=== PATIENT | female | born 1945 | race Caucasian/White ===

== ENCOUNTER 2017-09-21 13:17 | Inpatient (IN) | payer OTHER, MEDICARE ==
[2017-09-21] MEDS ORDERED: Iohexol 300 MG/ML 30 ML Bottle PO ONE (13:56)
[2017-09-21] MEDS ORDERED: Acetaminophen 650 MG Supp RECTAL PRN (13:56)
[2017-09-21] MEDS ORDERED: Ondansetron 4 MG Tab.DIS PO PRN (13:58)
[2017-09-21] MEDS: Dextrose 5%-Lactated Ringers 1,000 ML IV SCH ×2 (14:25→23:10)
[2017-09-21] MEDS ORDERED: Iopamidol 612 MG/ML 100 ML Bottle IV PRN (14:36)
[2017-09-21] MEDS ORDERED: Pantoprazole 40 MG Vial IV ONE (15:00)
[2017-09-21] MEDS: Sodium Chloride 0.9% 10 ML Syringe FLUSH SCH (15:29)
--- NOTE | 2017-09-21 16:36 | PCM.HP ---
H&P History of Present Illness - General Date of Service: 09/21/17 Admit Problem/Dx: Admission Diagnosis/Problem Admission Diagnosis/Problem Partial bowel obstruction Source of Information: Patient History Limitations: Reports: No Limitations - History of Present Illness Onset of Symptoms: Reports: Gradual Abdomen Pain Score (Numeric/FACES): 4 - Related Data Allergies/Adverse Reactions: Allergies Allergy/AdvReac Type Severity Reaction Status Date / Time azithromycin Allergy Rash Verified 11/04/15 10:11 bacitracin Allergy Rash Verified 03/29/16 09:08 [From Neosporin ([id number])] bacitracin zinc Allergy Rash Verified 03/29/16 09:08 [From Neosporin ([id number])] ciprofloxacin Allergy Rash Verified 03/29/16 09:08 neomycin sulfate Allergy Rash Verified 03/29/16 09:08 [From Neosporin ([id number])] oxybutynin Allergy Rash Verified 03/29/16 09:08 polymyxin B Allergy Rash Verified 03/29/16 09:08 [From Neosporin ([id number])] codeine AdvReac Vomiting Verified 03/29/16 09:08 hydromorphone AdvReac Vomiting Verified 03/29/16 09:08 prochlorperazine AdvReac Vomiting Verified 03/29/16 09:08 [From Compazine] prochlorperazine edisylate AdvReac Vomiting Verified 03/29/16 09:08 [From Compazine] prochlorperazine maleate AdvReac Vomiting Verified 03/29/16 09:08 [From Compazine] zolpidem tartrate AdvReac Dizziness Verified 03/29/16 09:08 [From Ambien] popcorn AdvReac Fever Uncoded 03/29/16 09:08 Home Medications: Home Meds Calcium Citrate 950 mg PO DAILY 08/08/14 [History] Cholecalciferol (Vitamin D3) [Vitamin D3] 400 unit PO BID 08/08/14 [History] Cyanocobalamin (Vitamin B12) [Vitamin B12] 2,000 mcg SL BID 08/08/14 [History] Fish Oil/Borage/Flax/Om3,6,9#1 [Be[place]umont 3-6-9 Complex Softgel] 1,000 mg PO DAILY 08/08/14 [History] Levothyroxine Sodium [Synthroid] 125 mcg PO DAILY 08/08/14 [History] Multivitamin [Multi-Vitamin Daily] 1 tab PO BID 08/08/14 [History] Omeprazole 40 mg PO BID 08/08/14 [History] Vitamin B Complex 100 NO.2 [Balanced B-100] 1 tab PO DAILY 08/08/14 [History] Mv, Min #36/Iron,Carbonyl/FA [Geritol Complete Tablet] 1 tab PO .WEEKLY [History] Mv-Mn/FA/Vit K/Lycop/Lut/Zeaxa [Ocuvite Eye + Multi Tablet] 1 tab PO Q7D [History] Ubidecarenone [Coenzyme Q-10] 200 mg PO BID 11/03/15 [History] Lipase/Protease/Amylase [Zenpep DR 5,000 Unit] 10,000 units PO TID 11/04/15 [ History] Trimethobenzamide HCl 300 mg PO BID 11/04/15 [History] Past Medical History HEENT History: Reports: Impaired Vision Other HEENT History: wears glasses Cardiovascular History: Reports: Arrhythmia Gastrointestinal History: Reports: Bowel Obstruction, Chronic Constipation, Colon Polyp, Gastritis, GERD, Hiatal Hernia, Other (See Below) Other Gastrointestinal History: pancreatic non-absorbtion disorder Genitourinary History: Reports: Chronic Renal Insuffiency, Retention, Urinary, Urinary Incontinence, UTI, 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: Reports: Fibroids, , Other (See Below) Other OB/BYN History: double independent uteruses Musculoskeletal History: Reports: Arthritis, Other (See Below) Other Musculoskeletal History: double scoliosis Neurological History: Reports: Alzheimers Disease, Headaches, Chronic, Head Trauma, Migraines, Other (See Below) Other Neuro History: TBI 2013 Psychiatric History: Reports: Depression Endocrine/Metabolic History: Reports: Hypothyroidism, Vitamin D Deficiency Hematologic History: Reports: Iron Deficiency Oncologic (Cancer) History: Reports: Basal Cell Carcinoma, Renal Dermatologic History: Reports: Eczema - Infectious Disease History Infectious Disease History: Reports: Chicken Pox, Measles, Mumps - Past Surgical History HEENT Surgical History: Reports: Adenoidectomy, Naso-Sinus Surgery, Tonsillectomy GI Surgical History: Reports: Appendectomy, Bariatric Procedure, Cholecystectomy , Colonoscopy, EGD, Hernia Repair/Other, Liz Fundoplication, Polypectomy, Other (See Below) Female Surgical History: Reports: Hysterectomy, Salpingo-Oophorectomy, Other (See Below) Musculoskeletal Surgical History: Reports: Carpal Tunnel Oncologic Surgical History: Reports: Other (See Below) Dermatological Surgical History: Reports: Skin Biopsy Social & Family History - Family History Family Medical History: Noncontributory - Tobacco Use Smoking Status *Q: Never Smoker Second Hand Smoke Exposure: No - Caffeine Use Caffeine Use: Reports: None - Recreational Drug Use Recreational Drug Use: No H&P Review of Systems - Review of Systems: Review Of Systems: See Below Free Text/Narrative: Kriss states that she is having abdominal pain for 7 days from her umbilicus down to her pelvic area. Quantity: 4/10 all the time, 6/10 if she moves and a 10/10 after eating Quality: "severe stomach ache" constant intense aching Course: gradually worsening Aggravating factors: eating, movement or walking around Alleviating Factors: laying down and not eating Associated S/S: nausea, vomiting, pain with bowel movements, diarrhea - color of stools are whitish/yellow General: Reports: No Symptoms HEENT: Reports: No Symptoms Pulmonary: Reports: No Symptoms Cardiovascular: Reports: No Symptoms Gastrointestinal: Reports: No Symptoms Genitourinary: Reports: No Symptoms Musculoskeletal: Reports: No Symptoms Skin: Reports: No Symptoms Psychiatric: Reports: No Symptoms Neurological: Reports: Weakness Hematologic/Lymphatic: Reports: No Symptoms Immunologic: Reports: No Symptoms Exam - Exam Exam: See Below - Vital Signs Vital Signs: Last Vital Signs Temp 96.2 F 09/21/17 14:44 Pulse 66 09/21/17 14:44 Resp 16 09/21/17 14:44 BP 122/67 09/21/17 14:44 Pulse Ox 96 09/21/17 14:44 Weight: 148 lb - Exam General: Alert, Oriented, Moderate Distress HEENT: PERRLA Neck: Supple, Trachea Midline Lungs: Clear to Auscultation, Normal Respiratory Effort Cardiovascular: Regular Rate, Regular Rhythm GI/Abdominal Exam: Distended, Tender, Other (pain in the periumbilical area radiates to lower abdominal area. Distended.) (Female) Exam: Deferred Rectal (Female) Exam: Deferred Back Exam: Normal Inspection, Full Range of Motion Extremities: Normal Inspection, Normal Range of Motion Skin: Warm, Dry, Intact Neurological: Cranial Nerves Intact, Reflexes Equal Bilateral Neuro Extensive - Mental Status: Alert, Oriented x3, Normal Mood/Affect Neuro Extensive - Motor, Sensory, Reflexes: CN II-XII Intact, Normal Gait, Normal Reflexes Psychiatric: Alert, Normal Affect, Normal Mood - Patient Data Lab Results Last 24 hrs: Laboratory Results - last 24 hr 09/21/17 09/21/17 09/21/17 Range/Units 13:45 13:45 13:45 WBC 4.3 L (4.5-11.0) K/uL RBC 4.17 (3.30-5.50) M/uL Hgb 12.5 (12.0-15.0) g/dL Hct 39.1 (36.0-48.0) % MCV 94 (80-98) fL MCH 30 (27-31) pg MCHC 32 (32-36) % Plt Count 209 (150-400) K/uL Sodium 143 (140-148) mmol/L Potassium 3.7 (3.6-5.2) mmol/L Chloride 108 (100-108) mmol/L Carbon Dioxide 25 (21-32) mmol/L Anion Gap 9.9 (5.0-14.0) mmol/L BUN 13 (7-18) mg/dL Creatinine 0.6 (0.6-1.0) mg/dL Est Cr Clr Drug Dosing TNP Estimated GFR (MDRD) > 60 (>60) Glucose 95 (74-106) mg/dL Calcium 8.6 (8.5-10.1) mg/dL Phosphorus (2.5-4.9) mg/dL Magnesium 2.5 H (1.8-2.4) mg/dL Ferritin 38 (8-388) ng/ml Total Bilirubin 0.6 (0.2-1.0) mg/dL AST 38 H (15-37) U/L ALT 49 (12-78) U/L Alkaline Phosphatase 106 (46-116) U/L Total Protein 6.4 (6.4-8.2) g/dL Albumin 3.9 (3.4-5.0) g/dL Globulin 2.5 (2.3-3.5) g/dL Albumin/Globulin Ratio 1.6 (1.2-2.2) Amylase (25-115) U/L Lipase (73-393) U/L Vitamin B12 2512 H (193-986) pg/ml Vitamin D 25-Hydroxy (30-100) ng/mL Folate > 20.0 (8.6-58.9) ng/ml 09/21/17 09/21/17 Range/Units 13:45 13:45 WBC (4.5-11.0) K/uL RBC (3.30-5.50) M/uL Hgb (12.0-15.0) g/dL Hct (36.0-48.0) % MCV (80-98) fL MCH (27-31) pg MCHC (32-36) % Plt Count (150-400) K/uL Sodium (140-148) mmol/L Potassium (3.6-5.2) mmol/L Chloride (100-108) mmol/L Carbon Dioxide (21-32) mmol/L Anion Gap (5.0-14.0) mmol/L BUN (7-18) mg/dL Creatinine (0.6-1.0) mg/dL Est Cr Clr Drug Dosing Estimated GFR (MDRD) (>60) Glucose (74-106) mg/dL Calcium (8.5-10.1) mg/dL Phosphorus 3.5 (2.5-4.9) mg/dL Magnesium (1.8-2.4) mg/dL Ferritin (8-388) ng/ml Total Bilirubin (0.2-1.0) mg/dL AST (15-37) U/L ALT (12-78) U/L Alkaline Phosphatase (46-116) U/L Total Protein (6.4-8.2) g/dL Albumin (3.4-5.0) g/dL Globulin (2.3-3.5) g/dL Albumin/Globulin Ratio (1.2-2.2) Amylase 51 (25-115) U/L Lipase 91 (73-393) U/L Vitamin B12 (193-986) pg/ml Vitamin D 25-Hydroxy 46.4 (30-100) ng/mL Folate (8.6-58.9) ng/ml Result Diagrams: 09/21/17 13:45 09/21/17 13:45 - Problem List (1) Partial small bowel obstruction SNOMED Code(s): 331164226 ICD Code: K56.600 - PARTIAL INTESTINAL OBSTRUCTION, UNSPECIFIED TO CAUSE Status: Acute Current Visit: Yes Problem List Initiated/Reviewed/Updated: Yes Orders Last 24hrs: Active Orders 24 hr Category Date Time Status Admission Status [Patient Status] [ADT] Routine ADT 09/21/17 13:00 Active Intake and Output [RC] Q1HWA Care 09/21/17 13:51 Active Up ad Latricia [RC] ASDIRECTED Care 09/21/17 13:41 Active Vital Signs [RC] Q6H Care 09/21/17 13:41 Active Abdomen Pelvis w Cont [CT] Urgent Exams 09/21/17 13:52 Taken VITAMIN B1 (THIAMINE), BLOOD Routine Lab 09/22/17 04:00 Ordered Acetaminophen [Tylenol] Med 09/21/17 13:56 Active 650 mg PO Q4H PRN Acetaminophen [Tylenol] Med 09/21/17 13:56 Active 650 mg RECTAL Q4H PRN Dextrose 5%-Lactated Ringers 1,000 ml Med 09/21/17 14:00 Active IV ASDIRECTED Iopamidol [Isovue-300 (61%)] Med 09/21/17 14:36 Active 100 ml IV . DIRECTED PRN Ondansetron [Zofran ODT] Med 09/21/17 13:58 Active 4 mg PO Q4H PRN Sodium Chloride 0.9% [Normal Saline] 70 ml Med 09/21/17 14:45 Active IV ASDIRECTED Sodium Chloride 0.9% [Saline Flush] Med 09/21/17 14:45 Active 10 ml FLUSH ONETIME SCD [Sequential Compression Device] [OM.PC] Routine Oth 09/21/17 13:51 Ordered Code Status [Resuscitation Status] Routine Resus Stat 09/21/17 13:41 Ordered Medication Orders Acetaminophen (Tylenol) 650 mg PO Q4H PRN PRN Reason: FEVER/PAIN Acetaminophen (Tylenol) 650 mg RECTAL Q4H PRN PRN Reason: FEVER/PAIN Dextrose/Lactated Ringer's (Dextrose 5%-Lactated Ringers) 1,000 mls @ 150 mls/ hr IV ASDIRECTED ENMANUEL Last Admin: 09/21/17 14:25 Dose: 150 mls/hr Sodium Chloride (Normal Saline) 70 mls @ 3 mls/sec IV ASDIRECTED ENMANUEL Stop: 09/21/17 23:00 Last Admin: 09/21/17 15:30 Dose: 3 mls/sec Iopamidol (Isovue-300 (61%)) 100 ml IV . DIRECTED PRN PRN Reason: RADIOLOGY EXAM Stop: 09/22/17 14:37 Last Admin: 09/21/17 15:30 Dose: 100 ml Ondansetron HCl (Zofran Odt) 4 mg PO Q4H PRN PRN Reason: N/V Sodium Chloride (Saline Flush) 10 ml FLUSH ONETIME ENMANUEL Stop: 09/21/17 23:00 Last Admin: 09/21/17 15:29 Dose: 10 ml Assessment/Plan Comment:: Admit to Inpatient See Orders in EMR Plan of hospitalization 2 nights and 3 days. Unless surgery is indicated Ekta Benjamin
[2017-09-21] MEDS ORDERED: hydrOXYzine HCl 100 MG/2 ML SDV IM PRN (17:14)
[2017-09-21] MEDS ORDERED: Polyethylene Glycol 3350 Powder 17 GM Packet PO ONE (17:46)
[2017-09-21] MEDS ORDERED: MVI, Adult with Vitamin K 10 ML, Thiamine 100 MG, Magnesium Sulfate 2 GM, Folic Acid 1 ... IV ONE ×5 (18:00)
[2017-09-21] MEDS ORDERED: Polyethylene Glycol 3350 Powder 238 GM Bot ONE (18:16)
[2017-09-21] MEDS: Acetaminophen 325 MG Tab PO PRN (22:52)
[2017-09-22] MEDS: Dextrose 5%-Lactated Ringers 1,000 ML IV SCH ×3 (05:32→23:49)
[2017-09-22] MEDS: Acetaminophen 325 MG Tab PO PRN (07:52)
[2017-09-22] MEDS ORDERED: Lidocaine 2% 100 MG/5 ML Syringe IVPUSH ONE (09:00)
[2017-09-22] MEDS ORDERED: Ropivacaine 33 ML, Dexamethasone 8 MG, EPINEPHrine 0.4 MG, Sodium Chloride 0.9% 44.6 ML NERVRT SCH ×4 (09:00)
[2017-09-22] MEDS ORDERED: Non-Formulary Medication 1 Each (Levothyroxine Sodium [Synthroid] 125 MCG) PO SCH (09:00)
[2017-09-22] MEDS ORDERED: Mirabegron 25 MG Tab Extended Release PO SCH (09:00)
[2017-09-22] MEDS ORDERED: Ketamine 500 MG/5 ML MDV IV SCH (09:00)
[2017-09-22] MEDS ORDERED: Meropenem 500 MG SDV ONE (09:19)
--- NOTE | 2017-09-22 09:26 | PN ---
DATE OF SERVICE: 09/22/2017 SUBJECTIVE: Kriss continues to have pain on a pain scale of 1 to 10, an 8/10. She also was reporting headache. She had two BMs last night, which made no difference in her pain. REVIEW OF SYSTEMS: Remainder of review of systems negative for any pertinent positives and negatives. OBJECTIVE: GENERAL: Kriss Greene is a 72-year-old female, remains to have abdominal distention. VITAL SIGNS: TPR is 96.4, 87, 18, and blood pressure 94/50. HEENT: Negative. NECK: Supple. HEART: Regular rate and rhythm. LUNGS: Clear. ABDOMEN: Distended and tender in all 4 quadrants. EXTREMITIES: Without peripheral edema. ASSESSMENT: Partial small bowel obstruction. PLAN: 1. Schedule, have consent signed for exploratory laparotomy for release of partial small bowel obstruction and possible lysis of adhesion and possible bowel resection. Case to follow today, , 09/22/2017; general anesthesia; TAP block; n.p.o.; Fred Willams MD. Lidocaine and ketamine ordered through Pharmacy. 2. Cefoxitin 2 grams IV on-call to OR; with an increase in headache, may have Tylenol with sip of water 1000 mg one time. Ekta Abernathy PA-C /[id number]
[2017-09-22] MEDS ORDERED: cefOXitin 2 GM in Sodium Chloride 0.9% 50 ML IV ONE (10:00)
[2017-09-22] MEDS ORDERED: Propofol 200 MG/20 ML SDV ONE (10:00)
[2017-09-22] MEDS ORDERED: Succinylcholine 200 MG/10 ML MDV ONE (10:00)
[2017-09-22] MEDS ORDERED: Lactated Ringers 2,000 ML ONE (10:36)
[2017-09-22] MEDS: Levothyroxine 100 MCG, Levothyroxine 25 MCG PO SCH ×2 (14:15)
[2017-09-22] MEDS: Lidocaine 0.4%/D5W 2 GM/500 ML BAG IV SCH (14:16)
[2017-09-22] MEDS ORDERED: Ondansetron 4 MG/2 ML SDV IVPUSH PRN (16:00)
[2017-09-22] MEDS ORDERED: diphenhydrAMINE 50 MG/ML SDV IVPUSH PRN (16:00)
[2017-09-22] MEDS ORDERED: Labetalol 20 MG/4 ML Syringe IVPUSH PRN (16:00)
[2017-09-22] MEDS ORDERED: hydrOXYzine HCl 100 MG/2 ML SDV IM PRN (16:00)
[2017-09-22] MEDS ORDERED: Metoclopramide 10 MG/2 ML SDV IVPUSH PRN (16:00)
[2017-09-22] MEDS: Acetaminophen Soln 650 MG/20.3 ML UD Cup PO SCH ×2 (16:38→21:35)
[2017-09-22] MEDS: Sodium Chloride 0.9% 10 ML Syringe FLUSH SCH (16:40)
[2017-09-22] MEDS: Pantoprazole 40 MG Vial IVPUSH SCH (16:40)
[2017-09-22] MEDS ORDERED: Scopolamine 1.5 MG Transdermal Patch TOP SCH (17:00)
[2017-09-22] MEDS: cefOXitin 2 GM in Sodium Chloride 0.9% 50 ML IV SCH ×2 (17:03→21:23)
[2017-09-22] MEDS: MVI, Adult with Vitamin K 10 ML, Thiamine 100 MG, Chromium/Copper/Mang/Selen/Zn 1 ML in... IV SCH ×4 (17:39)
[2017-09-22] MEDS: Gabapentin 250 MG/5 ML Solution ML 470 ML Bottle PO SCH (20:23)
[2017-09-22] MEDS: Heparin Sodium 5,000 Units/ML Vial SUBCUT SCH (20:24)
[2017-09-22] MEDS ORDERED: TRIMETHOBENZAMIDE PO SCH (21:00)
[2017-09-23] MEDS ORDERED: Iohexol 647 MG/ML 50 ML SDV PO STA (03:27)
[2017-09-23] MEDS: Acetaminophen Soln 650 MG/20.3 ML UD Cup PO SCH ×4 (04:24→21:18)
[2017-09-23] MEDS: cefOXitin 2 GM in Sodium Chloride 0.9% 50 ML IV SCH ×2 (04:25→09:19)
[2017-09-23] MEDS: Dextrose 5%-Lactated Ringers 1,000 ML IV SCH ×2 (06:05→12:54)
[2017-09-23] MEDS: Celecoxib 200 MG Cap PO SCH (08:13)
[2017-09-23] MEDS: Heparin Sodium 5,000 Units/ML Vial SUBCUT SCH ×2 (08:13→21:19)
[2017-09-23] MEDS: Levothyroxine 100 MCG, Levothyroxine 25 MCG PO SCH ×2 (08:13)
[2017-09-23] MEDS: SCOPOLAMINE PATCH CHECK TOP SCH (08:19)
--- NOTE | 2017-09-23 08:44 | CR ---
UGI wo KUB HISTORY: eval R -Y GBP COMPARISON: CT 09/21/2017. FINDINGS: After administration of oral contrast, upright views were obtained, including delayed image s up to 2 hours. Post operative changes gastric bypass. Surgical drains in place. No evidence for bela k. On the delayed images, contrast material is seen in the distal esophagus and a dilated loop of sma ll bowel mid abdomen. If symptoms persist consider follow-up exam to exclude partially obstructing pr ocess at the GE junction and mid small bowel.
[2017-09-23] MEDS: Gabapentin 250 MG/5 ML Solution ML 470 ML Bottle PO SCH ×3 (09:07→21:18)
[2017-09-23] MEDS: Lidocaine 0.4%/D5W 2 GM/500 ML BAG IV SCH (09:08)
[2017-09-23] MEDS: Mirabegron 25 MG Tab Extended Release PO SCH (09:16)
--- NOTE | 2017-09-23 12:04 | PN ---
DATE OF SERVICE: 09/23/2017 SUBJECTIVE: Kriss is postop day 1. Her lidocaine drip will stop at 2 o'clock. Her pain has been controlled. She has been up ambulating. REVIEW OF SYSTEMS: Remainder of review of systems is negative for any pertinent positives and negatives. OBJECTIVE: GENERAL: Kriss Greene is a 72-year-old female. She is alert and orientated. VITAL SIGNS: TPR is 98.8, 64, 16, blood pressure 104/54. HEENT: Negative. NECK: Supple. HEART: Regular rate and rhythm. LUNGS: Clear. ABDOMEN: Dressings are dry and intact. Abdominal binder is on. EXTREMITIES: Without peripheral edema. ASSESSMENT: Exploratory laparotomy with revision of the jejunostomy and placement of Vicryl mesh. Date 09/22/2017. PLAN: 1. Step-3 gastric bypass diet. 2. Decrease IV to 100 mL per hour. 3. Good pulmonary toilet. 4. We will evaluate p.r.n. or in the a.m. Ekta Abernathy PA-C /[id number]
[2017-09-23] MEDS: Pantoprazole 40 MG Vial IVPUSH SCH (15:37)
[2017-09-23] MEDS: MVI, Adult with Vitamin K 10 ML, Thiamine 100 MG, Chromium/Copper/Mang/Selen/Zn 1 ML in... IV SCH ×4 (17:41)
[2017-09-24] MEDS: Acetaminophen Soln 650 MG/20.3 ML UD Cup PO SCH ×4 (03:03→21:01)
[2017-09-24] MEDS: Dextrose 5%-Lactated Ringers 1,000 ML IV SCH (03:04)
[2017-09-24] MEDS: Mirabegron 25 MG Tab Extended Release PO SCH (08:36)
[2017-09-24] MEDS: Levothyroxine 100 MCG, Levothyroxine 25 MCG PO SCH ×2 (08:37)
[2017-09-24] MEDS: Celecoxib 200 MG Cap PO SCH (08:37)
[2017-09-24] MEDS: Heparin Sodium 5,000 Units/ML Vial SUBCUT SCH ×2 (08:37→21:00)
[2017-09-24] MEDS: Gabapentin 250 MG/5 ML Solution ML 470 ML Bottle PO SCH ×3 (08:49→21:12)
[2017-09-24] MEDS ORDERED: Cyanocobalamin (Vitamin B12) 1,000 MCG/ML SDV IM ONE (09:00)
[2017-09-24] MEDS ORDERED: Sodium Chloride 0.9% 10 ML Syringe IV PRN (10:21)
[2017-09-24] MEDS: SCOPOLAMINE PATCH CHECK TOP SCH (10:27)
[2017-09-24] MEDS: Bisacodyl 5 MG Tab PO SCH ×2 (11:44→21:01)
[2017-09-24] MEDS ORDERED: Pantoprazole 40 MG Tab.CR PO SCH (16:00)
[2017-09-25] MEDS: Acetaminophen Soln 650 MG/20.3 ML UD Cup PO SCH ×2 (04:33→09:17)
[2017-09-25 07:33] VITALS: BP 114/70
[2017-09-25] MEDS: Heparin Sodium 5,000 Units/ML Vial SUBCUT SCH (08:16)
[2017-09-25] MEDS: Bisacodyl 5 MG Tab PO SCH (08:16)
[2017-09-25] MEDS: Levothyroxine 100 MCG, Levothyroxine 25 MCG PO SCH ×2 (08:17)
[2017-09-25] MEDS: Celecoxib 200 MG Cap PO SCH (08:17)
[2017-09-25] MEDS: SCOPOLAMINE PATCH CHECK TOP SCH (08:17)
[2017-09-25] MEDS: Mirabegron 25 MG Tab Extended Release PO SCH (08:17)
[2017-09-25] MEDS: Gabapentin 250 MG/5 ML Solution ML 470 ML Bottle PO SCH (08:24)
--- NOTE | 2017-09-25 15:57 | OR ---
DATE OF PROCEDURE: 09/22/2017 PREOPERATIVE DIAGNOSIS: Partial small bowel obstruction at jejunojejunostomy. POSTOPERATIVE DIAGNOSES: 1. Partial small bowel obstruction at jejunojejunostomy with a fixed stricture at the junction of the Olga Lidia limb and the point of entering the jejunojejunostomy. 2. Extensive intraabdominal adhesions. OPERATIVE PROCEDURES: Exploratory laparotomy with lysis of extensive adhesions and: 1. Revision of jejunojejunostomy component of Olga Lidia-en-Y gastric bypass (34116). 2. Placement of Vicryl mesh to displace pelvic and abdominal montes from underlying viscera to limit recurrent adhesion formation (33248). ANESTHESIA: General. [employer] CLERK: Ekta Abernathy PA-C. INDICATION FOR PROCEDURE: This is a 72-year-old presenting with a picture of a partial small bowel obstruction. The bowel was fairly distended on CT scan, and given this, we will proceed with an open approach to prevent risking injury to underlying bowel and significant GI tract spill should that occur. The plan is to proceed with an exploratory laparotomy and procedures as indicated to relieve the bowel obstruction. This may include lysis of adhesions and/or bowel resection. Potential risks of the procedure including bleeding, infection, leaks from various GI tract closures, problems with recurrent bowel obstruction over time were all reviewed, and the patient wishes to proceed. DETAILS OF PROCEDURE: The patient was taken to the operating room and placed in a supine position. After general endotracheal anesthesia was induced, using ultrasound guidance, bilateral subcostal transverse abdominis plane blocks were placed using standard solution. At this point, a Thomas catheter was placed, which was subsequently removed and an upper midline incision made from the umbilicus roughly handsbreadth up toward the xiphoid. This was carried down through the full thickness of the abdominal wall. Upon entering the peritoneal cavity, there were fairly extensive adhesions present between the omentum, small bowel, and the abdominal and pelvic wall. These were taken down. At that point, the small bowel was run. The point of obstruction was obviously at the point where the Olga Lidia limb entered the jejunojejunostomy with the bowel proximal, that being fairly distended. As the anastomosis was examined, it appeared to have a fixed stricture at the point where the Olga Lidia limb joined the jejunojejunostomy, which would require revision of that component of the Olga Lidia-en-Y gastric bypass. Given this, then the small bowel was divided at the junction of the Olga Lidia limb and entering the jejunojejunostomy with a STEFANY stapler. Small bowel of the Olga Lidia limb was then resected to facilitate adequate mobility for subsequent revisional anastomosis. The mesentery underlying this segment was divided with mesenteric loads and the roughly 6 cm of small bowel was then excised by means of a STEFANY talbert load. The patient at this point has had fairly good weight loss, and given this, the reconstruction of the jejunojejunostomy was made only roughly 30 cm distal to the previous anastomosis which gave her a Olga Lidia limb of around 80 cm and common limb of around 360 cm. At that level, side-to- side enteroenterostomy was accomplished with internal firing of the STEFANY stapler. The common opening was then closed transversely with same stapler. Angles were then anastomosed and reinforced with some 3-0 Vicryl stitch and the mesenteric defect closed with a 2-0 silk stitch. At that point, no further problems noted. The abdomen was irrigated with antibiotic-containing saline solution to limit recurrent adhesion formation between the pelvic and abdominal wall and underlying viscera. A 12-inch area of Vicryl mesh was placed down into the depths of the pelvis along the pelvic sidewalls and up against the abdominal wall. The midline fascia was then approximated with a #2 Vicryl stitch and the subcutaneous tissue approximated with two layers of 3-0 Vicryl stitch and the skin with eileen. Dressing was applied. The patient was taken to the recovery room in satisfactory condition. Physician senior office assistant, Ekta Abernathy, played an essential role in assisting in this case, helping to position the patient, retract structures as needed, as well as suturing and cutting sutures when indicated. Her presence improved patient's safety and decreased the operative time. Fred Willams MD /[id number]
--- NOTE | 2017-09-25 16:15 | DISCH ---
FINAL DIAGNOSES: 1. Partial small-bowel obstruction at jejunojejunostomy. 2. Extensive intraabdominal adhesions. 3. Bariatric surgery status. 4. Pancreatic malabsorption disorder. 5. Treated hypothyroidism. 6. History of traumatic brain injury. 7. History of iron deficiency. OPERATIVE PROCEDURE: This was done on 09/22, exploratory laparotomy with lysis of extensive adhesions: 1. Revision of jejunojejunostomy component of the Olga Lidia-en-Y gastric bypass. 2. Placement of Vicryl mesh to limit recurrent adhesion formation. SUMMARY: This is a 72-year-old presenting with symptoms suggestive of partial small-bowel obstruction. After evaluation, the patient was admitted and underwent exploratory laparotomy on 09/22. She was found to have a stricture at the point where the Olga Lidia limb entered the jejunojejunostomy, and the jejunojejunostomy was then revised. This was not based significantly more distally than previous increased degree of malabsorption. Some Vicryl mesh was placed at the end of the procedure to limit recurrent adhesion formation between pelvic and abdominal wall and underlying viscera. Postoperatively, she has done well with no significant postoperative problems. She is tolerating a step-4 diet. Upper GI x-ray on postop day #1 looked good. We will send her home with usual medications plus Tylenol 650 p.o. q.i.d. p.r.n. and then Celebrex 200 mg daily x14 days and gabapentin 300 mg t.i.d. x14 days. She did not move her bowels as of yet, but is passing gas. We will sent her with 2 doses of milk of magnesia to help facilitate bowel activity when she gets home. FOLLOWUP: Will be with Ekta Abernathy PA-C, at [facility] on 10/03/2017, and she will be sent home on a step-4 diet.
--- NOTE | 2017-09-26 13:26 | PN ---
DATE OF SERVICE: 09/24/2017 The patient has afebrile with stable vital signs. Oral intake is fairly good. We will walk through a step-4 diet today and saline lock the IV as oral pain medications are working satisfactorily. Give her some bowel stimulation today. She may be ready for discharge home tomorrow. Fred Willams MD /[id number]
== END 2017-09-25 10:36 | disposition home or self-care (01) | DRG 336 ==
LOC: JP.2SS 13:17 → UNDODISIN 09-25 10:36
PROVIDERS: ADMIT Surgery; ATTEND Surgery
PROC: 0DBA0ZX Excision of Jejunum, Open Approach, Diagnostic (ICD-10-PCS; principal; 2017-09-22)
PROC: 0DNU0ZZ Release Omentum, Open Approach (ICD-10-PCS; 2017-09-22)
PROC: 0DN80ZZ Release Small Intestine, Open Approach (ICD-10-PCS; 2017-09-22)
PROC: 0DNW0ZZ Release Peritoneum, Open Approach (ICD-10-PCS; 2017-09-22)
PROC: 3E0T3BZ Introduction of Anesthetic Agent into Peripheral Nerves and Plexi, Percutaneous Approach (ICD-10-PCS; 2017-09-22)
PROC: 3E0M05Z Introduction of Adhesion Barrier into Peritoneal Cavity, Open Approach (ICD-10-PCS; 2017-09-22)
DX: K56.600 Partial intestinal obstruction, unspecified as to cause (principal); K91.2 Postsurgical malabsorption, not elsewhere classified; K66.0 Peritoneal adhesions (postprocedural) (postinfection); K56.690 Other partial intestinal obstruction; E03.9 Hypothyroidism, unspecified; N18.9 Chronic kidney disease, unspecified; K21.9 Gastro-esophageal reflux disease without esophagitis; K44.9 Diaphragmatic hernia without obstruction or gangrene; Z87.820 Personal history of traumatic brain injury; E55.9 Vitamin D deficiency, unspecified; Z85.828 Personal history of other malignant neoplasm of skin; M19.90 Unspecified osteoarthritis, unspecified site; Z87.440 Personal history of urinary (tract) infections; H54.7 Unspecified visual loss; Z98.84 Bariatric surgery status; E61.1 Iron deficiency; Z88.1 Allergy status to other antibiotic agents; Z88.5 Allergy status to narcotic agent; Z91.018 Allergy to other foods; Z88.8 Allergy status to other drugs, medicaments and biological substances
CPT/HCPCS: 36415; 74177; 74240; 74240-26; 80053; 82150; 82306; 82607; 82728; 82746; 83690; 83735; 84100; 84425; 85027; 94762; A9270-GY; C9113; J0171; J0330; J0694; J1100; J1644; J2001; J2185; J2405; J2704; J2795; J3010; J3411; J3420; J3475; J3490; J7030; J7042; J7050; J7120; Q9965; Q9967

== ENCOUNTER 2019-02-12 07:43 | Inpatient (IN) | payer OTHER, MEDICARE ==
[2019-02-12] MEDS ORDERED: Propofol 200 MG/20 ML SDV ONE (08:04)
[2019-02-12] MEDS ORDERED: fentaNYL 100 MCG/2 ML SDV ONE (08:04)
[2019-02-12] MEDS ORDERED: Lactated Ringers 1,000 ML IV SCH (09:00)
[2019-02-12] MEDS ORDERED: Cyanocobalamin (Vitamin B12) 1,000 MCG/ML SDV IM ONE (09:00)
[2019-02-12] MEDS ORDERED: Glycopyrrolate 0.2 MG/ML 2 ML SDV IVPUSH ONE (09:15)
[2019-02-12] MEDS ORDERED: MVI, Adult with Vitamin K 10 ML, Thiamine 200 MG, Chromium/Copper/Mang/Selen/Zn 1 ML in... IV ONE ×4 (10:15)
[2019-02-12] MEDS: Dextrose 5%-Lactated Ringers 1,000 ML IV SCH (12:50)
[2019-02-12] MEDS ORDERED: Ondansetron 4 MG/2 ML SDV IVPUSH PRN (14:10)
[2019-02-12] MEDS ORDERED: Melatonin 3 MG Tab PO PRN (14:57)
[2019-02-12] MEDS ORDERED: HYDROmorphone 1 MG/ML Syringe IV PRN (15:32)
[2019-02-12] MEDS ORDERED: HYDROmorphone 0.5 MG/0.5 ML Syringe IVPUSH PRN (15:32)
[2019-02-12] MEDS: Sodium Ferric Gluconate Cmplex 250 MG in Sodium Chloride 0.9% 100 ML IV SCH (17:44)
[2019-02-12] MEDS ORDERED: Acetaminophen 325 MG Tab PO PRN (21:02)
[2019-02-13] MEDS: Dextrose 5%-Lactated Ringers 1,000 ML IV SCH ×2 (00:35→09:43)
[2019-02-13] MEDS ORDERED: Meropenem 500 MG SDV ONE (06:41)
[2019-02-13] MEDS: Levothyroxine 100 MCG Tab PO SCH (07:13)
[2019-02-13] MEDS ORDERED: fentaNYL 250 MCG/5 ML SDV ONE (09:44)
[2019-02-13] MEDS ORDERED: Rocuronium 50 MG/5 ML Vial ONE (09:45)
[2019-02-13] MEDS ORDERED: Succinylcholine 200 MG/10 ML MDV ONE (09:45)
[2019-02-13] MEDS ORDERED: Glycopyrrolate 0.2 MG/ML 5 ML MDV ONE (09:45)
[2019-02-13] MEDS ORDERED: Ondansetron 4 MG/2 ML SDV ONE (09:45)
[2019-02-13] MEDS ORDERED: Dexamethasone 4 MG/ML SDV ONE (09:45)
[2019-02-13] MEDS ORDERED: Neostigmine Methylsulfate 1 MG/ML 5 ML Syringe ONE (09:45)
[2019-02-13] MEDS ORDERED: Propofol 200 MG/20 ML SDV ONE (09:45)
[2019-02-13] MEDS: Mirabegron 25 MG Tab Extended Release PO SCH (10:19)
[2019-02-13] MEDS: Zinc (Zinc Gluconate) 50 MG Tab PO SCH (10:19)
[2019-02-13] MEDS ORDERED: cefOXitin 2 GM in Sodium Chloride 0.9% 50 ML IV ONE (11:30)
[2019-02-13] MEDS ORDERED: Ketamine 50 MG in Sodium Chloride 0.9% 49.5 ML IV SCH (11:45)
[2019-02-13] MEDS ORDERED: Lidocaine 2% 100 MG/5 ML Syringe IVPUSH SCH (11:45)
[2019-02-13] MEDS ORDERED: Ketamine 500 MG/5 ML MDV IV SCH (11:45)
[2019-02-13] MEDS ORDERED: Bupivacaine 0.5% 50 ML MDV ONE (13:01)
[2019-02-13] MEDS ORDERED: Lidocaine 1% with EPINEPHrine 1:100,000 50 ML MDV ONE (13:01)
[2019-02-13] MEDS ORDERED: hydrOXYzine HCl 100 MG/2 ML SDV IM ONE (13:18)
[2019-02-13] MEDS: Lidocaine 0.4%/D5W 2 GM/500 ML BAG IV SCH (14:20)
[2019-02-13] MEDS ORDERED: hydrOXYzine HCl 100 MG/2 ML SDV IM PRN (14:39)
[2019-02-13] MEDS ORDERED: diphenhydrAMINE 50 MG/ML SDV IVPUSH PRN (14:39)
[2019-02-13] MEDS ORDERED: Morphine 4 MG/ML Syringe IVPUSH PRN (14:39)
[2019-02-13] MEDS ORDERED: Morphine 2 MG/ML Syringe IVPUSH PRN (14:39)
[2019-02-13] MEDS ORDERED: Albuterol/Ipratropium 3.0-0.5 MG/3 ML Neb Soln INH PRN (14:39)
[2019-02-13] MEDS ORDERED: Metoclopramide 10 MG/2 ML SDV IVPUSH PRN (14:39)
[2019-02-13] MEDS ORDERED: Labetalol 20 MG/4 ML Syringe IVPUSH PRN (14:39)
[2019-02-13] MEDS ORDERED: Dextrose 5%-Lactated Ringers 1,000 ML IV SCH (14:45)
[2019-02-13] MEDS: MVI, Adult with Vitamin K 10 ML, Thiamine 200 MG, Chromium/Copper/Mang/Selen/Zn 1 ML in... IV SCH ×4 (15:46)
[2019-02-13] MEDS: Acetaminophen 325 MG Tab PO SCH ×2 (15:49→22:06)
[2019-02-13] MEDS ORDERED: Pantoprazole 40 MG Vial IVPUSH SCH (16:00)
[2019-02-13] MEDS: cefOXitin 2 GM in Sodium Chloride 0.9% 50 ML IV SCH ×2 (16:08→22:06)
[2019-02-14] MEDS ORDERED: Iopamidol 612 MG/ML 50 ML SDV PO STA (03:25)
[2019-02-14] MEDS: Acetaminophen 325 MG Tab PO SCH ×4 (03:30→21:20)
[2019-02-14] MEDS: cefOXitin 2 GM in Sodium Chloride 0.9% 50 ML IV SCH (04:40)
--- NOTE | 2019-02-14 05:09 | CRLCR ---
Indication: Olga Lidia-en-Y revision. Evaluate for leakage Technique: Ultrasound abdomen modified upper GI Comparison: 09/23/2017 Findings: Oral contrast changes to the gastric pouch and proximal jejunum. No definitive evidence for oral contrast leakage. Impression: No definitive evidence for oral contrast leakage. Dictated by Lico Prado MD @ 02/14/2019 5:08:04 AM Dictated by: Lico Prado MD @ 02/14/2019 05:08:12 (Electronically Signed)
--- NOTE | 2019-02-14 07:25 | CRLCR ---
Indication: Follow-up delayed film from earlier this morning. Technique: Abdomen 1 view. Comparison: Upper GI study 02/14/2019. Findings: Surgical clips in the left upper quadrant related to gastric bypass. Midline surgical eileen. Multiple right sided tacks. Right pelvic stimulator pack with leads in the pelvis bilaterally. Previously seen enteric contrast within the stomach and proximal Olga Lidia limb has progressed distally and is now predominantly seen in the left lower quadrant and pelvis. No definite evidence of contrast leak. No definite free air. Few mildly prominent loops of small bowel in the left upper abdomen. Moderate amount of stool in the right colon. Impression: Interval progression of enteric contrast into small bowel loops in the left lower quadrant and pelvis. No definite evidence of contrast leak. Dictated by Ekta Rosas MD @ Feb 14 2019 7:21AM Signed by Dr. Ekta Rosas @ Feb 14 2019 7:25AM
[2019-02-14] MEDS ORDERED: Triamcinolone Acetonide 0.1% Crm 15 GM Tube TOP PRN (07:30)
[2019-02-14] MEDS ORDERED: Ondansetron 4 MG Tab.DIS PO PRN (07:33)
[2019-02-14] MEDS: Zinc (Zinc Gluconate) 50 MG Tab PO SCH (08:44)
[2019-02-14] MEDS: Levothyroxine 100 MCG Tab PO SCH (08:44)
[2019-02-14] MEDS: Mirabegron 25 MG Tab Extended Release PO SCH (08:44)
--- NOTE | 2019-02-14 08:56 | PN ---
DATE OF SERVICE: 02/14/2019 SUBJECTIVE: Kriss is postoperative day 1. She states her pain is controlled. Vital signs have been stable. Oral intake 540. Urine output via Thomas catheter is 2110. REVIEW OF SYSTEMS: Remainder of review of systems negative for any pertinent positives and negatives. OBJECTIVE: GENERAL: Kriss Greene is a 73-year-old female. She is awake, but tired. VITAL SIGNS: TPR 97, 63, 18. Blood pressure 115/77. HEENT: Negative. NECK: Supple. HEART: Regular rate and rhythm. LUNGS: Clear. ABDOMEN: Dressing dry and intact. Abdominal binder is on. EXTREMITIES: Without peripheral edema. ASSESSMENT: 1. Upper gastrointestinal endoscopy, 02/12/2019. 2. Exploratory laparotomy with lysis of extensive adhesion and placement of Interceed mesh for partial small bowel obstruction secondary to extensive adhesions. Date of surgery, 02/13/2019. Surgeon, Fred Willams MD. PLAN: 1. Step 2 gastric bypass diet without cereal. 2. Leave Thomas catheter in. The patient has bladder stimulator. 3. Decrease IV to 100 mL/hour. Thomas catheter will be left in because has the control for her bladder stimulator with him. 4. Zofran 4 mg q.4 hours p.r.n. nausea, tacrolimus topical b.i.d., triamcinolone acetonide topical b.i.d. p.r.n. rash, Tigan 300 mg 1 capsule by mouth b.i.d. p.r.n. nausea. 5. Good pulmonary toilet. 6. We will evaluate p.r.n. or in a.m. Ekta Abernathy PA-C /[id number]
[2019-02-14] MEDS ORDERED: Non-Formulary Medication 1 Each (Mirabegron [Myrbetriq] 50 MG) PO SCH (09:00)
[2019-02-14] MEDS: Lidocaine 0.4%/D5W 2 GM/500 ML BAG IV SCH (13:54)
[2019-02-14] MEDS: Sodium Ferric Gluconate Cmplex 250 MG in Sodium Chloride 0.9% 100 ML IV SCH (16:00)
[2019-02-14] MEDS: MVI, Adult with Vitamin K 10 ML, Thiamine 200 MG, Chromium/Copper/Mang/Selen/Zn 1 ML in... IV SCH ×4 (16:01)
[2019-02-14] MEDS: Pantoprazole 40 MG Tab.CR PO SCH (16:02)
[2019-02-14] MEDS: TRIMETHOBENZAMIDE HCL 300 MG PO SCH (21:18)
[2019-02-14] MEDS: TACROLIMUS 0.1% TOP SCH (21:18)
[2019-02-14] MEDS: Dextrose 5%-Lactated Ringers 1,000 ML IV SCH (23:28)
[2019-02-15] MEDS: Acetaminophen 325 MG Tab PO SCH ×4 (04:19→21:25)
[2019-02-15] MEDS: Levothyroxine 100 MCG Tab PO SCH (08:05)
[2019-02-15] MEDS ORDERED: Cyanocobalamin (Vitamin B12) 1,000 MCG/ML SDV IM ONE (09:00)
[2019-02-15] MEDS: TACROLIMUS 0.1% TOP SCH ×2 (09:32→21:26)
[2019-02-15] MEDS: TRIMETHOBENZAMIDE HCL 300 MG PO SCH ×2 (09:34→21:26)
[2019-02-15] MEDS: Mirabegron 25 MG Tab Extended Release PO SCH (09:35)
[2019-02-15] MEDS: Zinc (Zinc Gluconate) 50 MG Tab PO SCH (09:36)
[2019-02-15] MEDS: Dextrose 5%-Lactated Ringers 1,000 ML IV SCH (10:00)
--- NOTE | 2019-02-15 11:40 | PN ---
DATE OF SERVICE: 02/15/2019 SUBJECTIVE: Kriss's only concern is that she is very hungry. She states the pain is controlled. She still has her Thomas catheter in. She will start her bladder stimulator tomorrow when the Thomas catheter is removed. She has been up ambulating. Vital signs have been stable. Oral intake 1776 and urine output 4150. REVIEW OF SYSTEMS: Remainder of review of systems negative for any pertinent positives and negatives. OBJECTIVE: GENERAL: Kriss Greene is a pleasant 73-year-old female. She is alert and orientated. VITAL SIGNS: TPR is 96.7, 62, 18, blood pressure 107/51. HEENT: Negative. NECK: Supple. HEART: Regular rate and rhythm. LUNGS: Clear. ABDOMEN: Dressings dry and intact. Abdominal binder is on. EXTREMITIES: Without peripheral edema. ASSESSMENT: 1. Upper gastrointestinal endoscopy, 02/12/2019. 2. Exploratory laparotomy with lysis of extensive adhesion and placement of Interceed mesh for partial small bowel obstruction secondary to extensive adhesions. Date of surgery, 02/13/2019. Surgeon, Fred Willams MD. PLAN: 1. Step 3 gastric bypass diet, double portions. 2. May shower. Leave Aquacel dressing on. 3. Discontinue Thomas catheter on 02/16/2019, at 0600. She will monitor her own bladder stimulator. 4. Good pulmonary toilet. 5. We will evaluate p.r.n. or in a.m. Ekta Abernathy PA-C /[id number]
--- NOTE | 2019-02-15 12:59 | OR ---
DATE OF PROCEDURE: 02/12/2019 SURGEON: Fred Willams MD PREOPERATIVE DIAGNOSIS: Upper and mid abdominal pain. POSTOPERATIVE DIAGNOSES: 1. Normal upper gastrointestinal endoscopic examination status post Olga Lidia-en-Y gastric bypass. 2. Symptoms otherwise consistent with partial small bowel obstruction. PROCEDURE: Upper gastrointestinal endoscopy. ANESTHESIA: IV sedation. INDICATION FOR PROCEDURE: A 73-year-old female presenting with some postprandial upper abdominal pain associated with some discomfort and bloating in the left mid and upper abdomen. The plan is to proceed with initial upper GI endoscopy, look for any signs of pathology in that level and otherwise proceed with biopsies and dilation as indicated. Potential risks including bleeding and perforation were discussed and the patient wishes to proceed. DETAILS OF PROCEDURE: The patient was taken to the operating room and placed in a left lateral decubitus position. IV sedation was administered, after which the upper GI endoscope was passed orally through the length of the esophagus into the gastric pouch, from there through the gastrojejunostomy roughly 20 cm into the Olga Lidia limb. Overall, the findings were entirely normal. There were no areas of inflammation, retained food or fluid, and no stricturing. Upon completion of the examination, the scope was withdrawn and the above findings were reconfirmed. After discussion of situation with the patient and her patient is having problems with partial small bowel obstruction and they live beyond an hour past [place] in [place] and the plan will be to proceed with admission for adequate hydration overnight and then proceed with exploratory laparotomy with release of likely partial small bowel obstruction. Fred Willams MD /[id number]
--- NOTE | 2019-02-15 13:09 | PN ---
DATE OF SERVICE: 02/13/2019 The patient has been clinically stable overnight. She does not have much in the way of pain. The upper endoscopy yesterday was found to be normal, and she has quite classic partial bowel obstruction symptoms, status post gastric bypass. Plan to proceed with laparotomy today and release the bowel obstruction and possible revision of the jejunojejunostomy if necessary and other procedures as indicated. Potential risks including bleeding, infection, possible recurrence of the problem overtime, as well as remote possibility cardiopulmonary, septic, or hemorrhagic complications leading to were discussed, and the patient wishes to proceed with surgery later on today. Fred Willams MD /[id number]
[2019-02-15] MEDS: MVI, Adult with Vitamin K 10 ML, Thiamine 200 MG, Chromium/Copper/Mang/Selen/Zn 1 ML in... IV SCH ×4 (16:52)
[2019-02-15] MEDS: Pantoprazole 40 MG Tab.CR PO SCH (16:53)
[2019-02-16] MEDS: Dextrose 5%-Lactated Ringers 1,000 ML IV SCH (02:18)
[2019-02-16] MEDS: Acetaminophen 325 MG Tab PO SCH ×2 (03:14→09:30)
[2019-02-16] MEDS: Levothyroxine 100 MCG Tab PO SCH (07:24)
[2019-02-16] MEDS: TACROLIMUS 0.1% TOP SCH (09:27)
[2019-02-16] MEDS: TRIMETHOBENZAMIDE HCL 300 MG PO SCH (09:28)
[2019-02-16] MEDS: Mirabegron 25 MG Tab Extended Release PO SCH (09:28)
[2019-02-16] MEDS: Zinc (Zinc Gluconate) 50 MG Tab PO SCH (09:30)
[2019-02-16 11:26] VITALS: BP 127/60; PULSE 60
--- NOTE | 2019-02-19 08:48 | OR ---
DATE OF PROCEDURE: 02/13/2019 SURGEON: Fred Willams MD PREOPERATIVE DIAGNOSIS: Partial small bowel obstruction. POSTOPERATIVE DIAGNOSES: Partial small bowel obstruction secondary to extensive adhesions. OPERATIVE PROCEDURES: Exploratory laparotomy with: 1. Lysis of extensive adhesions (38423). 2. Placement of Interceed mesh to limit recurrent adhesion formation between pelvic and abdominal montes and underlying small bowel (06945). ANESTHESIA: General. INDICATION FOR PROCEDURE: This patient presents with clinical picture of partial small bowel obstruction. The plan is to proceed with exploratory laparotomy with lysis of adhesions and bowel resection as indicated. Potential risks including bleeding, infection, leaks from various GI tract closures, problems with bowel obstruction recurring over time, as well as the possibility of cardiopulmonary, septic, or hemorrhagic complications leading to were discussed, and the patient wishes to proceed. DETAILS OF PROCEDURE: The patient was taken to the operating room and placed in a supine position. After general endotracheal anesthesia was induced, the abdomen was prepped and draped. Thomas catheter was inserted. A midline incision, which extended from roughly a handsbreadth's above the umbilicus toward the xiphoid, was made. This eventually was extended somewhat below the xiphoid to allow adequate exposure. Upon entering the peritoneal cavity, the patient had quite fulminant adhesions throughout the area of the small bowel with almost all of the small bowel being incorporated in some fine filmy adhesions. There appeared to be several points along the level of dissection that might account for some obstructive problems. Eventually, all of the adhesions were lysed such that the entire length of the small bowel, including the biliopancreatic limb, Olga Lidia limb, and common limb, were all such that there were only general turns in the configuration of the small bowel. At that point, the abdomen was irrigated with meropenem-containing saline solution. There appeared to be no indication for bowel resection in this case. To limit recurrent adhesion formation between pelvic and abdominal montes and the underlying small bowel, an Interceed mesh was placed underneath the pelvis, behind the urinary bladder, and up against the abdominal wall, including the area of the incision. Midline fascia was then approximated with #2 Vicryl stitch, subcutaneous tissue closed with 2 layers of 3-0 and 4-0 Vicryl stitch deep, and then eileen for the skin. Dressing was applied. The patient was taken to the recovery room in satisfactory condition. Fred Willams MD /[id number]
== END 2019-02-16 12:26 | disposition home or self-care (01) | DRG 336 ==
LOC: JP.MS 07:43 → JP.SDS 07:43 → EDSTATUS 10:40 → JP.MS 10:40 → UNDOADMIN 10:40
PROVIDERS: ADMIT Surgery; ATTEND Surgery
PROC: 0DJ08ZZ Inspection of Upper Intestinal Tract, Via Natural or Artificial Opening Endoscopic (ICD-10-PCS; 2019-02-12)
PROC: 0DN80ZZ Release Small Intestine, Open Approach (ICD-10-PCS; principal; 2019-02-13)
PROC: 3E0M05Z Introduction of Adhesion Barrier into Peritoneal Cavity, Open Approach (ICD-10-PCS; 2019-02-13)
PROC: 3E02340 Introduction of Influenza Vaccine into Muscle, Percutaneous Approach (ICD-10-PCS; 2019-02-14)
DX: K56.51 Intestinal adhesions [bands], with partial obstruction (principal); K91.2 Postsurgical malabsorption, not elsewhere classified; E53.8 Deficiency of other specified B group vitamins; E53.9 Vitamin B deficiency, unspecified; E55.9 Vitamin D deficiency, unspecified; E60 Dietary zinc deficiency; E50.9 Vitamin A deficiency, unspecified; E03.9 Hypothyroidism, unspecified; D50.9 Iron deficiency anemia, unspecified; G47.30 Sleep apnea, unspecified; Z79.899 Other long term (current) drug therapy; Z90.49 Acquired absence of other specified parts of digestive tract; Z85.528 Personal history of other malignant neoplasm of kidney; Z98.84 Bariatric surgery status; Z23 Encounter for immunization
CPT/HCPCS: 51702; 74018; 74240; 90662; 94762; A9270-GY; C9113; G0008; J0171; J0330; J0694; J1100; J2001; J2185; J2270; J2405; J2704; J2710; J2795; J2916; J3010; J3410; J3411; J3420; J3490; J7030; J7042; J7050; J7120; Q9967